=== PATIENT | female | born 1975 | race Caucasian/White ===

== ENCOUNTER 2023-01-14 10:51 | Emergency (ER) | payer MEDICAID, OTHER ==
[~2023-01-14] VITALS: Ht 165.1 cm; Wt 90.0 kg
[2023-01-14] MEDS ORDERED: KETOROLAC 30MG/ML VIAL IV STA (11:17)
[2023-01-14] MEDS ORDERED: SODIUM CHLORIDE 0.9% 1,000 ML IV ONE (11:30)
[2023-01-14] MEDS ORDERED: MORPHINE SULFATE 4 MG/ML CPJ (NOT FOR IM USE) IV ONE (11:45)
[2023-01-14 11:53] LABS: BASOPHILS % 0.3 % (0.0-2.0); EOSINOPHILS % 0.2 % (0.0-5.0); HEMATOCRIT. 39.8 % (36.0-48.0); HEMOGLOBIN. 13.3 g/dL (12.0-16.0); LYMPHOCYTES % 8.5 % (20.0-50.0); MEAN CORPUSCULAR HEMOGLOBIN 28.9 pg (28.0-32.0); MEAN CORPUSCULAR VOLUME 86.4 fL (81.0-99.0); MEAN PLATELET VOLUME 7.7 fl (7.4-10.4); MONOCYTES % 8.2 % (2.0-8.0); NEUTROPHILS % 82.8 % (40.0-76.0); PLATELET 227 x1000/uL (130-400); RED BLOOD CELL COUNT 4.61 mill/uL (4.2-5.4); RED CELL DISTRIBUTION WIDTH 15.4 % (11.6-14.6)
[2023-01-14 12:18] LABS: CHLORIDE 107 mEq/L (98-107)
[2023-01-14] MEDS ORDERED: METOCLOPRAMIDE HCL 10MG/2ML VIAL IV ONE (15:00)
[2023-01-14] MEDS ORDERED: DIPHENHYDRAMINE 25MG CAPSULE PO ONE (15:00)
[2023-01-14] MEDS ORDERED: ACETAMINOPHEN 325MG TABLET PO ONE (15:00)
[2023-01-14] MEDS ORDERED: MAGNESIUM 2 G PREMIX 50 ML IV ONE (15:00)
[2023-01-14] MEDS ORDERED: NAPR-1176 MT (16:52)
[2023-01-14 17:30] VITALS: BP 115/68
== END 2023-01-14 17:32 | disposition home or self-care (01) ==
LOC: ER 10:51 → CANBEDREQ 16:55 → ER 17:32
DX: G43.909 Migraine, unspecified, not intractable, without status migrainosus (principal); I10 Essential (primary) hypertension; E11.9 Type 2 diabetes mellitus without complications; Z98.890 Other specified postprocedural states
CPT/HCPCS: 36415; 70450; 71045; 71275; 80053; 84484; 85025; 85379; 93005; 96365; 96366; 96375; 99285; J1885; J2270; J2765; J3475; J7030; Q0163